=== PATIENT | female | born 1995 | race Two or more races ===

== ENCOUNTER 2023-05-05 07:11 | Emergency (ER) | payer OTHER ==
[~2023-05-05] VITALS: Ht 162.6 cm; Wt 65.8 kg
== END 2023-05-05 10:46 | disposition home or self-care (01) ==
LOC: ER 07:11
PROVIDERS: General Practice
DX: O20.0 Threatened abortion (principal); Z3A.12 12 weeks gestation of pregnancy; Z88.8 Allergy status to other drugs, medicaments and biological substances

== ENCOUNTER 2023-05-07 12:50 | Outpatient (CLI) | payer OTHER | END 2023-05-07 14:45 | disposition home or self-care (01) | LOC: PRENATAL 12:50 | PROVIDERS: ATTEND Obstetrics & Gynecology Maternal & Fetal Medicine | DX: O36.80X0 Pregnancy with inconclusive fetal viability, not applicable or unspecified (principal); Z36.82 Encounter for antenatal screening for nuchal translucency; Z3A.12 12 weeks gestation of pregnancy ==

== ENCOUNTER 2023-06-28 12:45 | Outpatient (CLI) | payer OTHER | END 2023-06-28 12:47 | disposition home or self-care (01) | LOC: PRENATAL 12:45 | PROVIDERS: ATTEND Obstetrics & Gynecology Maternal & Fetal Medicine | DX: O35.9XX0 Maternal care for (suspected) fetal abnormality and damage, unspecified, not applicable or unspecified (principal); O35.3XX0 Maternal care for (suspected) damage to fetus from viral disease in mother, not applicable or unspecified; O44.00 Complete placenta previa NOS or without hemorrhage, unspecified trimester; Z3A.19 19 weeks gestation of pregnancy ==

== ENCOUNTER 2023-08-28 14:52 | Outpatient (CLI) | payer OTHER | END 2023-08-28 14:54 | disposition home or self-care (01) | LOC: PRENATAL 14:52 | PROVIDERS: ATTEND Obstetrics & Gynecology Maternal & Fetal Medicine | DX: O26.849 Uterine size-date discrepancy, unspecified trimester (principal); O44.00 Complete placenta previa NOS or without hemorrhage, unspecified trimester; Z3A.28 28 weeks gestation of pregnancy ==

== ENCOUNTER 2023-10-14 11:10 | Outpatient (CLI) | payer OTHER | END 2023-10-14 11:21 | disposition home or self-care (01) | LOC: PRENATAL 11:10 | PROVIDERS: ATTEND Obstetrics & Gynecology Maternal & Fetal Medicine | DX: O26.849 Uterine size-date discrepancy, unspecified trimester (principal); O36.8199 Decreased fetal movements, unspecified trimester, other fetus; O99.019 Anemia complicating pregnancy, unspecified trimester; Z3A.35 35 weeks gestation of pregnancy ==

== ENCOUNTER 2023-11-12 08:01 | Inpatient (IN) | payer OTHER ==
[2023-10-30 14:16] LABS: URINE APPEARANCE Clear; URINE BILIRRUBIN Negative (NEGATIVE); URINE BLOOD Negative; URINE COLOR Yellow; URINE GLUCOSE Negative (NEGATIVE); URINE LEUKOCYTE Moderate; URINE NITRATE Negative; URINE PROTEIN Negative (NEGATIVE)
[2023-10-30 14:17] LABS: URINE BACTERIA 801.2 uL (0.0-1933); URINE EPITHELIAL CELLS 26.5 uL (0.0-38.8); URINE RBC 2.1 uL (0.0-20.8); URINE WBC 22.5 uL (0.0-23.2)
[2023-10-30 14:34] LABS: HEMATOCRIT 35.4 % (36.0-45.00); HEMOGLOBIN 11.9 g/dL (12.0-15.00); MEAN CELL VOLUME 84.3 fL (80.00-100.00); MEAN CORPUSCULAR HEMOGLOBIN 28.3 pg (27.00-32.0); MEAN CORPUSCULAR HGB CONC 33.6 g/dl (32.0-36.0); PLATELET COUNT 207 K/uL (150-450)
[2023-10-30 14:41] LABS: BILIRUBIN TOTAL 0.46 mg/dL (0.3-1.2); CREATININE SERUM 0.44 mg/dL (0.55-1.02); GFR 171.53; GLOBULINA 3.2 G/DL (2.4-3.5); POTASSIUM 3.95 mEq/L (3.5-5.1); TOTAL PROTEIN 6.2 gm/dL (6.4-8.2)
[2023-10-30 14:48] LABS: INR 0.94; PARTIAL THROMBOPLASTIN TIME 27.8 SECONDS (22.0-34.0); PROTHROMBIN TIME 9.9 SECONDS (9.0-11.5)
[~2023-11-12] VITALS: Ht 162.6 cm; Wt 84.8 kg
[2023-11-12] MEDS ORDERED: OXYTOCIN 500 ML IV SCH (12:15)
[2023-11-12] MEDS ORDERED: PRENATAL + DHA1 EAC1 PO (12:43)
[2023-11-12] MEDS ORDERED: HIERRO PO (12:44)
[2023-11-12] MEDS ORDERED: MORPHINE SULFATE 4 MG/ML CARTRIDGE IV PRN (15:30)
[2023-11-12] MEDS ORDERED: CHLORHEXIDINE GLUCONATE 120 ML BOTTLE TOP ONE (18:55)
[2023-11-12] MEDS ORDERED: ERYTHROMYCIN BASE 1 GM TUBE OP ONE (18:55)
[2023-11-12] MEDS ORDERED: OXYTOCIN 20 UNITS/1000ML RL PIGGYBAG IV ONE (18:56)
[2023-11-12] MEDS ORDERED: LIDOCAINE HCL 1% 200MG/20ML VIAL IJ SCH (20:15)
[2023-11-12] MEDS ORDERED: CHLORHEXIDINE GLUCONATE 120 ML BOTTLE TOP SCH (20:15)
[2023-11-12] MEDS ORDERED: OXYTOCIN 1,000 ML IV SCH (20:15)
[2023-11-12] MEDS ORDERED: ACETAMINOPHEN 500 MG GEL..CAP PO PRN (20:15)
[2023-11-12] MEDS ORDERED: BENZOCAINE/MENTHOL 90 ML BOTTLE TOP PRN (20:15)
[2023-11-12] MEDS ORDERED: ERYTHROMYCIN BASE 1 GM TUBE OP SCH (20:15)
[2023-11-13 06:52] LABS: HEMATOCRIT 30.9 % (36.0-45.00); HEMOGLOBIN 10.9 g/dL (12.0-15.00); MEAN CELL VOLUME 84.7 fL (80.00-100.00); MEAN CORPUSCULAR HEMOGLOBIN 29.7 pg (27.00-32.0); MEAN CORPUSCULAR HGB CONC 35.1 g/dl (32.0-36.0); PLATELET COUNT 216 K/uL (150-450); RED BLOOD COUNT 3.65 M/uL (4.00-6.00)
[2023-11-13] MEDS ORDERED: PNV,CALCIUM 72/IRON/FOLIC ACID 1 TAB TABLET PO SCH (09:00)
[2023-11-13] MEDS ORDERED: FF) RHO(D) IMMUNE GLOBULIN (POM) IM ONE (12:15)
== END 2023-11-14 14:43 | disposition home or self-care (01) | DRG 807 ==
LOC: LDR 08:01 → OB/GYN 13:21
PROVIDERS: Obstetrics & Gynecology; ADMIT Student in an Organized Health Care Education/Training Program; ATTEND Student in an Organized Health Care Education/Training Program
PROC: 10E0XZZ Delivery of Products of Conception, External Approach (ICD-10-PCS; principal; 2023-11-12)
PROC: 0HQ9XZZ Repair Perineum Skin, External Approach (ICD-10-PCS; 2023-11-12)
PROC: 4A1HXCZ Monitoring of Products of Conception, Cardiac Rate, External Approach (ICD-10-PCS; 2023-11-12)
PROC: 3E033VJ Introduction of Other Hormone into Peripheral Vein, Percutaneous Approach (ICD-10-PCS; 2023-11-12)
DX: O70.0 First degree perineal laceration during delivery (principal); Z37.0 Single live birth; Z3A.39 39 weeks gestation of pregnancy; Z20.822 Contact with and (suspected) exposure to COVID-19